=== PATIENT | female | born 1940 | race Two or more races ===

== ENCOUNTER 2024-03-03 20:35 | Inpatient (IN) | payer MEDICAID, OTHER ==
[~2024-03-03] VITALS: Ht 152.4 cm; Wt 48.7 kg
--- NOTE | 2024-03-03 21:11 | ED.PDOC ---
HPI Comments HPI: Poor Historian. 83-year-old female presents to emergency department for evaluation of high blood pressure. Patient was checked by her physical therapy home health nurse today and they found her blood pressure to be elevated greater than 200. Patient was sent here for evaluation. Patient has associated headache and some palpitation but denies any chest pain or shortness of breath. Past Medcial History: Arthritis, thyroid disease, hypertension Past Surgical History: Leg-hip surgery REVIEW OF SYSTEMS: CONSTITUTIONAL: Denies acute: fever, diaphoresis, chills, generalized weakness. HEAD: Denies acute: photophobia Eyes: Denies acute: Double vision, vision loss, eye pain, eye discharge. EARS: Denies acute: tinnitus, hearing loss, ear discharge, ear pain, THROAT: Denies acute: sore throat, swelling, difficulty swallowing , pain with swallowing, change in voice. NECK: Denies acute: neck pain, neck swelling, stiff neck. HEART: Denies acute : chest pain, palpitations, LUNGS: Denies acute: SOB, wheezing, cough, hemoptysis ABDOMEN: Denies acute: abdominal pain, Nausea, Vomiting, diarrhea, melena , hematemesis, hematochezia SKIN: Denies acute: rash, redness, lesions, itchiness. EXTREMITIES: Denies acute: calf pain, numbness, tingling, weakness, denies pain in extremity. Denies acute: Low back pain. Neuro: Denies acute: focal neurological deficit, motor or sensory focal neurological deficit, tremors, seizure like activity, confusion, dizziness, change in mental status, loss of bowel or bladder function, cauda equina like symptoms. : Denies acute: dysuria, hematuria, flank pain, increase in urinary frequency. PSYCH: Denies acute: hallucination, suicidal ideation, homicidal ideation. FEMALE: Denies acute: abnormal vaginal bleeding, foul odor, unusual discharge. PHYSICAL EXAM: General: no acute distress, awake and alert. Head: normocephalic, atraumatic. Neck: supple, trachea is midline, no swelling. Throat: Normal phonation. Eyes:, no erythema, no purulent discharge, no proptosis, no icterus. Heart: regular rate, regular rhythm, no significant murmur appreciated. Lungs: no apparent respiratory distress, Able to speak in full sentences. No wheezing, no rhonchi, no crackles. No stridors Clear to auscultation bilaterally. Abdomen: non tender to palpation, non distended, soft, no guarding, no rebound, + bowel sounds. Neuro: Awake, Alert, oriented to name, self, situation, follows commands GCS=15. Speech is normal. Skin: no petechia, no purpura, no cyanosis, non-pale, not jaundice. Lower extremities: --no - Pitting edema no deformity, no focal swelling, no calf TTP. Makes eye contact. moves all four extremities. Face: no apparent facial droop. Time Seen by MD: 20:39 Reviewed Notes: Nurses Notes, Allergies Allergies: Coded Allergies: Penicillins (Verified Allergy, Unknown, 03/03/24) Home Meds Reported Medications Propranolol Hcl (Inderal La) 60 Mg Cap, 10 MG PO, CAP 03/04/24 Levothyroxine Sodium (Levothyroxine Sodium) 25 Mcg Tab, 1 TAB PO DAILY, #90 TAB 1 Refill 03/04/24 Methimazole (Methimazole) 10 Mg Tab, 10 MG PO, TAB 03/04/24 Information Source: Patient Was a procedure done? Was a procedure done?: No CP Differential Dx Differential Diagnosis: N/A Differential Diagnosis: Other (DDX include renal disease, thyroid disease, electrolyte abnormality, increased salt intake, medications non-compliance, undiagnosed HTN, Hypertensive crisis, hypertensive urgency., drug toxicity.) X-Ray, Labs, Meds, VS Vital Signs Date Time Temp Pulse Resp B/P (MAP) Pulse Ox O2 Delivery O2 Flow Rate FiO2 03/04/24 02:30 88 14 136/107 (117) 95 03/04/24 02:00 66 16 133/67 (89) 93 03/04/24 01:53 146/67 03/04/24 01:30 63 15 145/68 (93) 95 03/04/24 01:00 65 17 159/69 (99) 94 03/04/24 00:42 69 204/87 03/04/24 00:30 70 15 204/87 (126) 94 03/04/24 00:16 75 03/04/24 00:00 69 03/03/24 23:45 67 22 174/76 (108) 95 03/03/24 23:26 69 161/75 03/03/24 23:15 67 17 161/75 (103) 95 03/03/24 23:00 73 15 229/205 (213) 98 03/03/24 22:21 77 208/116 03/03/24 22:20 97.9 72 18 218/106 (143) 95 97.9 03/03/24 22:13 75 03/03/24 21:45 77 16 97 Room Air* 0 21 03/03/24 21:45 77 16 208/116 (146) 97 03/03/24 21:19 253/118 03/03/24 21:13 75 03/03/24 21:10 97.5 81 18 253/118 (163) 96 Lab Test 03/04/24 00:25 03/03/24 22:45 03/03/24 21:12 Range/Units Magnesium Level 2.5 1.6-2.6 mg/dL Troponin I High Sensitivity 28 27 25 </=34 ng/L White Blood Count 10.0 4.4-10.8 10^3/uL Red Blood Count 4.35 4.0-5.20 10^6/uL Hemoglobin 13.9 12.2-16.2 g/dL Hematocrit 41.6 36.0-46.0 % Mean Corpuscular Volume 95.6 80.0-100.0 fL Mean Corpuscular Hemoglobin 31.9 28.0-32.0 pg Mean Corpuscular Hemoglobin Concent 33.4 32.0-36.0 g/dL Red Cell Distribution Width 14.7 H 11.8-14.3 % Platelet Count 201 140-450 10^3/uL Mean Platelet Volume 11.4 H 6.9-10.8 fL Neutrophils (%) (Auto) 73.4 37.0-80.0 % Lymphocytes (%) (Auto) 17.5 10.0-50.0 % Monocytes (%) (Auto) 7.2 0.0-12.0 % Eosinophils (%) (Auto) 1.5 0.0-7.0 % Basophils (%) (Auto) 0.4 0.0-2.0 % Neutrophils # (Auto) 7.4 1.6-8.6 10 ^3/uL Lymphocytes # (Auto) 1.8 0.4-5.4 10 ^3/uL Monocytes # (Auto) 0.7 0-1.3 10 ^3/uL Eosinophils # (Auto) 0.1 0-0.8 10 ^3/uL Basophils # (Auto) 0 0-0.2 10 ^3/uL Nucleated Red Blood Cells 0.0 % Sodium Level 136 136-145 mmol/L Potassium Level 4.7 3.5-5.1 mmol/L Chloride Level 105 98-107 mmol/L Carbon Dioxide Level 24 20-31 mmol/L Anion Gap 7 5-15 Blood Urea Nitrogen 20 9-23 mg/dL Creatinine 0.73 0.550-1.02 mg/dL Glomerular Filtration Rate Calc 81 >90 mL/min BUN/Creatinine Ratio 27.4 H 10.0-20.0 Serum Glucose 115 H 74-106 mg/dL Calcium Level 10.0 8.7-10.4 mg/dL Total Bilirubin 0.5 0.2-1.0 mg/dL Aspartate Amino Transferase (AST) 9 L 13-40 U/L Alanine Aminotransferase (ALT) < 9 7-40 U/L Alkaline Phosphatase 99 46-116 U/L B-Type Natriuretic Peptide 203.03 0-100 pg/mL Total Protein 7.6 5.7-8.2 g/dL Albumin 4.7 3.2-4.8 g/dL [place] [id number] Ph: [phone] DIAGNOSTIC IMAGING Diagnostic Imaging Report : [id number] Signed PATIENT: LETICIA KINGSLEY ACCT: [id number] UNIT: [id number] : 1940 LOC: ER ROOM / BED: / AGE / SEX: 83 / F ADM STATUS: REG ER SERVICE 03 ORDERING PHYSICIAN: DIANA ARREOLA DO PROCEDURE(s): CXRP - CHEST PORTABLE REASON: HTN ORDER NUMBER(s): [id number], ACCESSION NUMBER(s): [id number] CHEST RADIOGRAPH Indication:HTN Technique: Single frontal view of the chest was obtained Comparison: None FINDINGS: Lines and Tubes: None Lungs: No focal consolidation. Pleura: No effusion. No pneumothorax. Cardiomediastinal contours: Unremarkable Bones: No acute osseous abnormality. IMPRESSION: No acute cardiopulmonary disease. ATED BY: IRVING KAM DO DICTATED DATE/TIME: 03/03/242142 SIGNED BY: IRVING KAM DO SIGNED DATE/TIME: 03/03/242142 CC: [place] [id number] Ph: [phone] DIAGNOSTIC IMAGING Diagnostic Imaging Report : [id number] Signed PATIENT: LETICIA KINGSLEY ACCT: [id number] UNIT: [id number] : 1940 LOC: ER ROOM / BED: / AGE / SEX: 83 / F ADM STATUS: REG ER SERVICE 03 ORDERING PHYSICIAN: DIANA ARREOLA DO PROCEDURE(s): HWOCT - HEAD WITHOUT CONTRAST REASON: HTN ORDER NUMBER(s): [id number], ACCESSION NUMBER(s): [id number] EXAM: CT HEAD WITHOUT CONTRAST INDICATION: HTN TECHNIQUE: CT of the head without intravenous contrast. Radiation Dose Information: CT Dose: CTDI volume is 48.66 mGy. Dose-length product is 682.94 mGy*cm The dose indicators for CT are the volume Computed Tomography (CT) Dose Index (CTDIvol) and the Dose Length Product (DLP), and are measured in units of mGy and mGy-cm, respectively. These indicators are not patient dose, but values generated from the CT scanner acquisition factors. The report includes radiation exposure data for exposures received during this examination. COMPARISON: None FINDINGS: There is no evidence of acute intracranial hemorrhage, extra-axial collection, mass effect, midline shift, herniation or hydrocephalus. The ventricles, sulci and cisterns are age appropriate. The gasca-white differentiation is intact. Patchy periventricular and subcortical white matter hypoattenuation is nonspecific but may be related to small vessel ischemic disease. The visualized paranasal sinuses and mastoid air cells are clear. The surrounding soft tissues and osseous structures are unremarkable. IMPRESSION: 1. No acute intracranial hemorrhage. 2. No CT findings territorial ischemia. ATED BY: VISH SAM Jr., DO DICTATED DATE/TIME: 03/03/242146 SIGNED BY: VISH SAM Jr., SIGNED DATE/TIME: 03/03/242146 CC: Time of 1ST Reevaluation: 00:30 Reevaluation 1ST: Improved Patient Education/Counseling: Diagnosis, Treatment Family Education/Counseling: No Family Present Comments Patient presented with the above HPI.---hypertension---workup was initiated. patient was found with the above mentioned diagnosis. Patient was given: Nitroglycerin, labetalol twice, Tylenol, Patient ED course and VS have been stabilized. Patient has been reassessed in the ED and remained in a stable condition. Pertinent incidental findings were discussed with the patient and/or family. Patient/family voices understanding and is agreeable with plan. Patient has been observed in the ED adequate length of time to insure improvement/stability. patient was admitted to the medicine team for further evaluation and treatment of their presentation. All the reports of any imaging studies that were ordered by myself were reviewed by myself. Departure 1 Departure Time of Disposition: 00:32 Impression: Primary Impression: Hypertensive crisis Disposition: 09 ADMITTED INPATIENT Admit to: [facility] Condition: Guarded Discharged With: Self Critical Care Note Critical Care Time?: Yes (35 min-critical care time only) Heart Score Heart Score: Heart Score Response (Comments) Value History N/A 0 EKG N/A 0 Age N/A 0 Risk Factors N/A 0 Troponin N/A 0 Total 0 DIANA ARREOLA DO Mar 03, 2024 21:11
[2024-03-03] MEDS: NITROGLYCERIN 0.4 MG SL TAB SL ONE (21:19)
[2024-03-03 21:32] LABS: Basophils # (auto) 0 10 ^3/uL (0-0.2); Basophils % (auto) 0.4 % (0.0-2.0); Eosinophils # (auto) 0.1 10 ^3/uL (0-0.8); Eosinophils % (auto) 1.5 % (0.0-7.0); Hematocrit 41.6 % (36.0-46.0); Hemoglobin 13.9 g/dL (12.2-16.2); Lymphocytes # (auto) 1.8 10 ^3/uL (0.4-5.4); Lymphocytes % (auto) 17.5 % (10.0-50.0); Mean Corpuscular Hemoglobin 31.9 pg (28.0-32.0); Mean Corpuscular Hgb Conc. 33.4 g/dL (32.0-36.0); Mean Corpuscular Volume 95.6 fL (80.0-100.0); Monocytes # (auto) 0.7 10 ^3/uL (0-1.3); Monocytes % (auto) 7.2 % (0.0-12.0); Neutrophils # (auto) 7.4 10 ^3/uL (1.6-8.6); Neutrophils % (auto) 73.4 % (37.0-80.0); Platelet Count (auto) 201 10^3/uL (140-450); Red Blood Cells 4.35 10^6/uL (4.0-5.20); Red Cell Distribution Width 14.7 % (11.8-14.3)
[2024-03-03 21:45] VITALS: PULSE 77; RESP 16; O2SAT 97
--- NOTE | 2024-03-03 21:46 | DVH ---
CHEST RADIOGRAPH Indication:HTN Technique: Single frontal view of the chest was obtained Comparison: None FINDINGS: Lines and Tubes: None Lungs: No focal consolidation. Pleura: No effusion. No pneumothorax. Cardiomediastinal contours: Unremarkable Bones: No acute osseous abnormality. IMPRESSION: No acute cardiopulmonary disease.
--- NOTE | 2024-03-03 21:49 | DVH ---
EXAM: CT HEAD WITHOUT CONTRAST INDICATION: HTN TECHNIQUE: CT of the head without intravenous contrast. Radiation Dose Information: CT Dose: CTDI volume is 48.66 mGy. Dose-length product is 682.94 mGy*cm The dose indicators for CT are the volume Computed Tomography (CT) Dose Index (CTDIvol) and the Dose Length Product (DLP), and are measured in units of mGy and mGy-cm, respectively. These indicators are not patient dose, but values generated from the CT scanner acquisition factors. The report includes radiation exposure data for exposures received during this examination. COMPARISON: None FINDINGS: There is no evidence of acute intracranial hemorrhage, extra-axial collection, mass effect, midline s hift, herniation or hydrocephalus. The ventricles, sulci and cisterns are age appropriate. The gasca-white differentiation is intact. Patchy periventricular and subcortical white matter hypoattenuation is nonspecific but may be related to small vessel ischemic disease. The visualized paranasal sinuses and mastoid air cells are clear. The surrounding soft tissues and osseous structures are unremarkable. IMPRESSION: 1. No acute intracranial hemorrhage. 2. No CT findings territorial ischemia.
[2024-03-03 21:50] LABS: Alkaline Phosphatase 99 U/L (46-116); Anion Gap 7 (5-15); Aspartate Aminotransferase 9 U/L (13-40); BUN/Creatinine Ratio 27.4 (10.0-20.0); Blood Urea Nitrogen 20 mg/dL (9-23); Carbon Dioxide 24 mmol/L (20-31); Chloride 105 mmol/L (98-107); Glucose 115 mg/dL (74-106); Potassium 4.7 mmol/L (3.5-5.1); Sodium 136 mmol/L (136-145)
[2024-03-03 21:51] LABS: Albumin 4.7 g/dL (3.2-4.8); Bilirubin, Total 0.5 mg/dL (0.2-1.0); Total Protein 7.6 g/dL (5.7-8.2)
[2024-03-03 21:56] LABS: Alanine Aminotransferase < 9 U/L (7-40)
[2024-03-03] MEDS: LABETALOL HCL 20 MG/4 ML VL IV ONE ×2 (22:21→23:25)
[2024-03-04] VITALS (7 sets, daily range): BP systolic 110–135; BP diastolic 53–65; PULSE 69–95; RESP 18–21; TEMP 97.4–98.5; O2SAT 93–98
[2024-03-04] MEDS: ACETAMINOPHEN 325 MG TAB PO ONE (00:42)
[2024-03-04] MEDS ORDERED: ACETAMINOPHEN 325 MG TAB PO PRN (02:45)
[2024-03-04] MEDS ORDERED: HYDROcodone-ACET 5/325MG TAB PO PRN (02:45)
[2024-03-04] MEDS ORDERED: NITROGLYCERIN 0.4 MG SL TAB SL PRN (02:45)
[2024-03-04] MEDS ORDERED: MORPHINE SULFATE INJ 2 MG/ml SYRG IV PRN (02:45)
[2024-03-04] MEDS ORDERED: ONDANSETRON HCL 4 MG/2 ML VIAL IV PRN (02:45)
--- NOTE | 2024-03-04 03:54 | DVHHPRES ---
History of Present Illness Resident Creating Document: LILLY SIDDIQUI RESIDENT History of Present Illness This is a 83 years old female with past medical history of hypertension, rheumatoid arthritis, hyperthyroidism presented to the ED with a chief complaint of elevated blood pressure. According to the daughter the patient was checked by her home health nurse today and and she found her blood pressure was more than 200 that prompted this visit. The patient was complaining of neck pain and headache but denies any chest pain, shortness of breath, dizziness, diaphoresis, abdominal pain, nausea, vomiting or any change in bowel and bladder habit. On admission blood pressure was 253/118 and was given 2 dose of IV labetalol 10 mg followed by 5 mg and subsequently drops the blood pressure to 161/75 . Cardiovascular: HTN Rheumatologic: Rheumatoid arthritis Endocrine: Hyperthyroidism Past Surgical History Right hip replacement 2 months ago Family History No significant family history Smoke: No ALCOHOL: none Drugs: None Lives: with Family Review of Systems Constitutional: No: Fever, Chills, Sweats, Weakness, Malaise, Other Eyes: No: Pain, Vision change, Conjunctivae inflammation, Eyelid inflammation, Other, Redness ENT: No: Ear pain, Ear discharge, Nose pain, Nose discharge, Nose congestion, Mouth pain, Mouth swelling, Throat pain, Throat swelling, Other Respiratory: No: Cough, Dry, Shortness of breath, SOB with excertion, Wheezing, Hemoptysis, Pleuritic Pain, Sputum, Wheezing, Other Cardiovascular: No: Chest Pain, Palpitations, Orthopnea, Paroxysmal Noc. Dyspnea, Edema, Lt Headedness, Other Gastrointestinal: No: Nausea, Vomiting, Abdominal Pain, Diarrhea, Constipation, Melena, Hematochezia, Other Genitourinary: No Dysuria, No Frequency, No Incontinence, No Hematuria, No Retention, No Other Musculoskeletal: neck pain; No: other, shoulder pain, arm pain, back pain, hand pain, leg pain, foot pain Skin: No: Rash, Lesions, Jaundice, Bruising, Other Neurological: No: Weakness, Numbness, Incoordination, Change in speech, Confusion, Seizures, Other Allergies: Coded Allergies: Penicillins (Verified Allergy, Unknown, 03/03/24) Medications Current Medications Medications Dose Ordered Sig/Vinicio Route Start Time Stop Time Status Last Admin Dose Admin Sodium Chloride 10 ml Q8HR IV 03/04/24 06:00 Acetaminophen 325 mg Q4HP PRN PO 03/04/24 02:45 Acetaminophen/ Hydrocodone Bitart 1 tab Q4HP PRN PO 03/04/24 02:45 Ondansetron HCl 4 mg Q4HP PRN IV 03/04/24 02:45 Enoxaparin Sodium 40 mg DAILY SC 03/04/24 10:00 Nitroglycerin 0.4 mg Q5MINP PRN SL 03/04/24 02:45 Morphine Sulfate 2 mg Q30M PRN IV 03/04/24 02:45 Hydralazine HCl 10 mg Q6HPRN IV 03/04/24 06:00 UNV Exam Vital Signs Vital Signs Date Time Temp Pulse Resp B/P (MAP) Pulse Ox O2 Delivery O2 Flow Rate FiO2 03/04/24 01:53 146/67 03/04/24 00:42 69 03/03/24 23:45 22 95 03/03/24 22:20 97.9 97.9 03/03/24 21:45 Room Air* 0 21 General Appearance: Alert, Oriented X3, Cooperative, mild distress HEENT: Atraumatic, PERRLA, EOMI, Mucous membr. moist/pink Respiratory: Clear to auscultation, Normal air movement Cardiovascular: Regular rate, Normal S1, Normal S2, No murmurs Abdominal: Normal bowel sounds, Soft, No tenderness, No hepatospenomegaly, No masses Extremities: No clubbing, No cyanosis, No edema, Normal pulses, No tenderness/swelling Skin: No rashes, No breakdown, No significant lesion Neuro: Normal gait, Normal speech, Strength at 5/5 X4 ext, Normal tone, Sensation intact Psych/Mental Status: Mental status NL, Mood NL Labs/Xrays Labs Test 03/04/24 00:25 03/03/24 21:12 Range/Units Troponin I High Sensitivity 28 </=34 ng/L White Blood Count 10.0 4.4-10.8 10^3/uL Red Blood Count 4.35 4.0-5.20 10^6/uL Hemoglobin 13.9 12.2-16.2 g/dL Hematocrit 41.6 36.0-46.0 % Mean Corpuscular Volume 95.6 80.0-100.0 fL Mean Corpuscular Hemoglobin 31.9 28.0-32.0 pg Mean Corpuscular Hemoglobin Concent 33.4 32.0-36.0 g/dL Red Cell Distribution Width 14.7 H 11.8-14.3 % Platelet Count 201 140-450 10^3/uL Mean Platelet Volume 11.4 H 6.9-10.8 fL Neutrophils (%) (Auto) 73.4 37.0-80.0 % Lymphocytes (%) (Auto) 17.5 10.0-50.0 % Monocytes (%) (Auto) 7.2 0.0-12.0 % Eosinophils (%) (Auto) 1.5 0.0-7.0 % Basophils (%) (Auto) 0.4 0.0-2.0 % Neutrophils # (Auto) 7.4 1.6-8.6 10 ^3/uL Lymphocytes # (Auto) 1.8 0.4-5.4 10 ^3/uL Monocytes # (Auto) 0.7 0-1.3 10 ^3/uL Eosinophils # (Auto) 0.1 0-0.8 10 ^3/uL Basophils # (Auto) 0 0-0.2 10 ^3/uL Nucleated Red Blood Cells 0.0 % Sodium Level 136 136-145 mmol/L Potassium Level 4.7 3.5-5.1 mmol/L Chloride Level 105 98-107 mmol/L Carbon Dioxide Level 24 20-31 mmol/L Anion Gap 7 5-15 Blood Urea Nitrogen 20 9-23 mg/dL Creatinine 0.73 0.550-1.02 mg/dL Glomerular Filtration Rate Calc 81 >90 mL/min BUN/Creatinine Ratio 27.4 H 10.0-20.0 Serum Glucose 115 H 74-106 mg/dL Calcium Level 10.0 8.7-10.4 mg/dL Total Bilirubin 0.5 0.2-1.0 mg/dL Aspartate Amino Transferase (AST) 9 L 13-40 U/L Alanine Aminotransferase (ALT) < 9 7-40 U/L Alkaline Phosphatase 99 46-116 U/L B-Type Natriuretic Peptide 203.03 0-100 pg/mL Total Protein 7.6 5.7-8.2 g/dL Albumin 4.7 3.2-4.8 g/dL Assessment/Plan Assessment/Plan Assessment and plan: # Hypertensive urgency - On admission blood pressure was 253/118 - Patient is admitted in telemetry and monitor blood pressure q.2h - Patient was given 2 dose of IV labetalol 10 mg followed by 5 mg - IV hydralazine 10 mg q.6 p.r.n. - Head CT revealed no acute intracranial hemorrhage - Chest x-ray demonstrated no acute cardiopulmonary disease - EKG revealed sinus rhythm with LVH findings and troponins are unremarkable - Ordered Echo. # History of rheumatoid arthritis - Continue home meds # History of hyperthyroidism -Continue home meds methimazole Goal of care discussed with the patient for more than 20 minutes full code Plan of treatment discussed with Dr. Cooley Plan discussed with: Patient, Other My Orders Orders - LILLY SIDDIQUI RESIDENT Procedure Category Date Status Time Admit ADMIT 03/04/24 Transmitted 02:41 Allergies NAHOMI 03/04/24 In Process 02:41 Code Status CODE 03/04/24 Transmitted 02:41 2 Gm Sodium Diet DIET 03/04/24 Transmitted Breakfast Sodium Chloride Lock PHA 03/04/24 In Process (Saline Lock Ns) 06:00 Oxygen Per Hour RT 03/04/24 Transmitted 02:41 Acetaminophen Tablet PHA 03/04/24 In Process (Tylenol Tablet) 02:45 Hydrocodone-Acet PHA 03/04/24 In Process 5/325mg Tab ([place] 02:45 Ondansetron Hcl PHA 03/04/24 In Process (Zofran) 02:45 Enoxaparin Sodium PHA 03/04/24 In Process (Lovenox) 10:00 Fall Risk Precautions NAHOMI 03/04/[address] 02:41 Complete Blood Count LAB 03/05/24 Verified 04:00 Comprehensive LAB 03/05/24 Verified Metabolic Panel 04:00 Pt Request For Service PT 03/04/24 Logged 02:41 Nitroglycerin PHA 03/04/24 In Process Sublingual (Ntrostat 02:45 Morphine Sulfate PHA 03/04/24 In Process Injection 02:45 Oxygen By Nasal RT 03/04/24 Transmitted Cannula 02:41 Stat Ekg For Chest NAHOMI 03/04/24 In Process Pain 02:41 Notify Of Changes NAHOMI 03/04/24 In Process From Base 02:41 Multiple Drum Sander Helper For NAHOMI 03/04/24 In Process 24 Hours 02:41 Emergency Dysrhythmia NAHOMI 03/04/24 In Process Protocol 02:41 Rhythm Strips Once NAHOMI 03/04/24 In Process Every Shift 02:41 Echo 2d Mode Cardiac US 03/04/24 Logged DOP 02:49 Thyroid Stimulating LAB 03/04/24 Logged Hormone 02:49 Hemoglobin A1c LAB 03/04/24 Logged 02:49 Bilat Lower Dvt US 03/04/24 Logged 02:49 Vitamin B12 LAB 03/04/24 Logged 02:49 Vitamin D, 25-Hydroxy LAB 03/04/24 Logged 02:49 Urinalysis LAB 03/04/24 Uncollected 02:49 Hydralazine Injection PHA 03/04/24 Pending (Apresoline Inject 06:00 Transfer Orders XFER 03/04/24 Transmitted 03:53 Date of Service: Mar 04, 2024 Billing Provider: KIMBERLI COOLEY MD Common Visit Codes: 39864-DUINRUU INP/OBS CARE (HIGH) Secondary Visit Codes: 56501-EMOVMQTT CARE PLAN 30 MINUTES LILLY SIDDIQUI RESIDENT Mar 04, 2024 03:54 KIMBERLI COOLEY MD Mar 04, 2024 09:01
--- NOTE | 2024-03-04 05:53 | ECG ---
[facility] Test Date: 2024-03-03 Test Time: 22:13:12 Pat Name: LETICIA CANCHOLA Department: ED Room: 0290 Gender: F Chargemaster Specialist: GADIEL : 1940 Requested By: DIANA ARREOLA Order Number: [id number] Reading MD: Trace Rayo Measurements Intervals [place] Rate: 75 P: 29 [place]: 177 QRS: 55 QRSD: 75 T: 60 QT: 411 QTc: 460 Interpretive Statements Sinus rhythm Consider left ventricular hypertrophy Electronically Signed On 03-05-2024 14:56:18 PDT by Trace Rayo Please click the below link to view image of tracing.
--- NOTE | 2024-03-04 05:54 | ECG ---
[facility] Test Date: 2024-03-04 Test Time: 00:16:39 Pat Name: LETICIA CANCHOLA Department: ED Room: 0290 Gender: F Wellness Nurse Rn: GADIEL : 1940 Requested By: DIANA ARREOLA Order Number: [id number] Reading MD: Trace Rayo Measurements Intervals [place] Rate: 75 P: 16 [place]: 186 QRS: 71 QRSD: 91 T: 75 QT: 443 QTc: 495 Interpretive Statements Sinus rhythm Borderline prolonged QT interval Electronically Signed On 03-05-2024 14:56:30 PDT by Trace Rayo Please click the below link to view image of tracing.
[2024-03-04] MEDS: SODIUM CHLOR 0.9% PF (SALINE LOCK) 10ML VIAL/SYR IV SCH (06:10)
[2024-03-04] MEDS: hydrALAZINE HCL 20 MG/ML VL IV PRN (08:41)
--- NOTE | 2024-03-04 08:48 | DVH ---
BILATERAL LOWER EXTREMITY VENOUS DOPPLER CLINICAL HISTORY: To rule out DVT Technique: Duplex Doppler evaluation of the deep venous systems of both lower extremities from the co mmon femoral veins to the popliteal veins including color Doppler and spectral/pulsed waveform analys is was performed. COMPARISON: None FINDINGS: The right and left common femoral, superficial femoral, popliteal, posterior tibial and peroneal vein s appear patent with normal augmentation, phasicity, compressibility and color-flow. IMPRESSION: 1. There is no sonographic evidence for DVT in the lower extremities. HS:Y
--- NOTE | 2024-03-04 09:23 | ECG ---
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
[2024-03-04] MEDS: methIMAzole 5 MG TAB PO SCH (10:27)
[2024-03-04] MEDS: ENOXAPARIN SOD 40 MG/0.4 ML SYRINGE SC SCH (10:28)
--- NOTE | 2024-03-04 10:42 | DVHPNRES ---
Progress Note Date Seen: Mar 04, 2024 Resident Creating Document: KHALIF CHINO RESIDENT Medical Necessity Reason Pt with a Central, PICC or Fol: No Subjective Review of Systems Patient is a 83-year-old female with past medical history of hypothyroidism, rheumatoid arthritis, hypertension, intertrochanteric femoral fracture, who came in due to hypertensive urgency along with an occipital headache. According to the patient, yesterday on 03/03/2024 her home health nurse checked her blood pressure and systolic blood pressure was in the 200s. Home health nurse subsequently instructed the patient to go to the ER. Patient notes having similar episodes of hypertension in the past, however is unable to remember when she experiences the last time. Blood pressure in the ER was noted to be 253/118, patient was given IV labetalol and admitted. Past surgical history: Right hip replacement 6 weeks ago Home medications: Amlodipine 10 mg, aspirin 81 mg Past Hospitalization: In December 2023 for right hip replacement after a mechanical fall Social & Personal history: Patient lives with her family. Denies using tobacco, alcohol, drugs. Allergies: Penicillin Patient seen and examined at bedside. Patient is alert and oriented to time, place person and responding to all questions. General: Reports fatigue Eyes: No Pain, No Vision change, No Conjunctivae inflammation, No Eyelid inflammation, No Other, No Redness ENT: No Ear pain, No Ear discharge, No Nose pain, No Nose discharge, No Nose congestion, No Mouth pain, No Mouth swelling, No Throat pain, No Throat swelling, No Other Cardiovascular: No Chest Pain, Palpitations, No Orthopnea, No Paroxysmal No Dyspnea, No Edema, No Lt Headedness, No Other Respiratory: No Cough, No Dry, No Shortness of breath, No SOB with exertion, No Wheezing, No Hemoptysis, No Pleuritic Pain, No Sputum, No Other Gastrointestinal: No Nausea, No Vomiting, No Abdominal Pain, No Diarrhea, No Constipation, No Melena, No Hematochezia, No Other Genitourinary: No Dysuria, No Frequency, No Incontinence, No Hematuria, No Retention, No Other Musculoskeletal: No other, No neck pain, No shoulder pain, No arm pain, No back pain, No hand pain, No leg pain, No foot pain Skin: No Rash, No Lesions, No Jaundice, No Bruising, No Other Objective vital signs Vital Sign Date Time Temp Pulse Resp B/P (MAP) Pulse Ox O2 Delivery O2 Flow Rate FiO2 03/04/24 09:35 98.0 89 18 127/53 (77) 98 98.0 03/04/24 07:20 Room Air* 0 21 medications Current Medications Medications Dose Ordered Sig/Vinicio Route Start Time Stop Time Status Last Admin Dose Admin Sodium Chloride 10 ml Q8HR IV 03/04/24 06:00 03/04/24 06:10 10 ML Acetaminophen 325 mg Q4HP PRN PO 03/04/24 02:45 Acetaminophen/ Hydrocodone Bitart 1 tab Q4HP PRN PO 03/04/24 02:45 Ondansetron HCl 4 mg Q4HP PRN IV 03/04/24 02:45 Enoxaparin Sodium 40 mg DAILY SC 03/04/24 10:00 03/04/24 10:28 40 MG Nitroglycerin 0.4 mg Q5MINP PRN SL 03/04/24 02:45 Morphine Sulfate 2 mg Q30M PRN IV 03/04/24 02:45 Hydralazine HCl 10 mg Q6HPRN PRN IV 03/04/24 06:00 03/04/24 08:41 10 MG Methimazole 5 mg DAILY PO 03/04/24 10:00 03/04/24 10:27 5 MG Examination General Appearance: Cooperative. Well developed. Well nourished. NAD Head Exam: Normal inspection Neck Exam: Normal inspection. Non-tender. Normal alignment Pulmonary/Respiratory: Chest non-tender. Clear bilateral breath sounds, no crackles, no wheezing. Cardiovascular/Chest: Regular rate and rhythm. No murmurs. No JVD. Peripheral Pulses: 2+ Radial (R). 2+ Radial (L). 2+ Pedal (R). 2+ Pedal (L) Abdominal Exam: Normal bowel sounds. Soft. normal abdomen, no visible veins, Nontender. No hepatospenomegaly. No masses Ankle Exam: Negative ankle edema Lower extremities: Negative lower extremity edema Neuro/Mental Status: A&O x4. Coherent. Thoughts/Psych: Normal thought pattern. Appropriate mood and affect. Good judgement and insight Skin Exam: Normal inspection. Normal color. Warm. Dry laboratory and microbiology Laboratory Tests 03/03/24 21:12 Test 03/03/24 21:12 Range/Units Serum Glucose 115 H 74-106 mg/dL Labs and/or images reviewed: Labs reviewed by me, Image(s) reviewed by me Problem List/Assessment/Plan Problem List/Assessment/Plan Hypertensive urgency versus emergency - CXR: No acute cardiopulmonary disease - head CT: No acute intracranial hemorrhage. No CT findings of territorial ischemia. - extremity venous Doppler: There is no sonographic evidence for DVT in the lower extremities. - IV labetalol 5 mg once, IV labetalol 10 mg once - hydralazine 10 mg q.6 as needed for systolic blood pressure greater than 150 - PT evaluation requested Hyperthyroidism - TSH 0.13 - methimazole 5 mg p.o. daily History of rheumatoid arthritis - acetaminophen 325 mg for mild pain, [place] q.4 hours as needed for moderate pain Vitamin B12 deficiency - repleted DVT prophylaxis: Levonox 40mg Goals of care: Full code, discussed for >16 minutes on 03/04/24 Plan discussed with patient Plan discussed with Dr. Cooley Plan discussed with: Patient, Other (Elton, RN) My Orders My Orders Orders - KHALIF CHINO RESIDENT Procedure Category Date Status Time Urinalysis LAB 03/04/24 Logged 07:46 Drug Screen LAB 03/04/24 Logged 07:46 Date of Service: Mar 04, 2024 Billing Provider: KIMBERLI COOLEY MD Common Visit Codes: [id number] INP/OBS CARE(HIGH) KHALIF CHINO Mar 04, 2024 10:42 KIMBERLI COOLEY MD Mar 04, 2024 17:44
[2024-03-04] MEDS ORDERED: METH-552 PO (11:37)
[2024-03-04] MEDS ORDERED: PROP60CA34 PO (11:43)
[2024-03-04] MEDS ORDERED: LEVO25TA6 PO (11:43)
[2024-03-04 15:35] LABS: Urine Bacteria None Seen /hpf (None Seen)
[2024-03-04 15:45] LABS: Free T3 2.95 pg/mL (2.3-4.2); Free T4 (Free Thyroxine) 1.36 ng/dL (0.89-1.76)
[2024-03-04 16:00] LABS: Amphetamine Screen, Urine Neg (NEGATIVE); Barbiturate Scree,Urine Neg (NEGATIVE); Benzodiazephine Screen, Urine Neg (NEGATIVE); Cannabinoid Screen, Urine Neg (NEGATIVE); Cocaine Screen, Urine Neg (NEGATIVE); Opiate Scree,Urine Neg (NEGATIVE); Phencyclidine Screen, Urine Neg (NEGATIVE)
[2024-03-04 16:31] LABS: Urine Amorphous Crystal FEW /hpf (None Seen); Urine Blood Negative /uL (Negative); Urine Clarity Clear (Clear); Urine Color Yellow (Yellow); Urine Mucus FEW (None Seen); Urine Protein, UAD 1+ (Negative); Urine Specific Gravity 1.024 (1.001-1.035); Urine Urobilinogen 3 mg/dL (Negative); Urine WBC 5 /hpf (0 - 5); Urine pH 6.5 (5.0-9.0)
[2024-03-04] MEDS: CYANOCOBALAMIN (B-12) 1000 MCG/1 ML VIAL IM ONE (17:30)
[2024-03-04] MEDS: amLODIPine BESYLATE 5 MG TAB PO ONE (20:08)
[2024-03-05] VITALS (8 sets, daily range): BP systolic 125–146; BP diastolic 61–89; PULSE 71–103; RESP 18–22; TEMP 97.9–98.4; O2SAT 96–99
[2024-03-05 07:36] LABS: Basophils # (auto) 0 10 ^3/uL (0-0.2); Basophils % (auto) 0.6 % (0.0-2.0); Eosinophils # (auto) 0.1 10 ^3/uL (0-0.8); Eosinophils % (auto) 2.4 % (0.0-7.0); Hematocrit 37.9 % (36.0-46.0); Hemoglobin 12.5 g/dL (12.2-16.2); Lymphocytes # (auto) 1.3 10 ^3/uL (0.4-5.4); Lymphocytes % (auto) 22.3 % (10.0-50.0); Mean Corpuscular Hemoglobin 31.7 pg (28.0-32.0); Mean Corpuscular Hgb Conc. 32.9 g/dL (32.0-36.0); Mean Corpuscular Volume 96.3 fL (80.0-100.0); Monocytes # (auto) 0.5 10 ^3/uL (0-1.3); Monocytes % (auto) 9.4 % (0.0-12.0); Neutrophils # (auto) 3.7 10 ^3/uL (1.6-8.6); Neutrophils % (auto) 65.3 % (37.0-80.0); Nucleated Red Blood Cells % 0.1 %; Platelet Count (auto) 153 10^3/uL (140-450); Red Blood Cells 3.93 10^6/uL (4.0-5.20); Red Cell Distribution Width 14.9 % (11.8-14.3); White Blood Cell 5.6 10^3/uL (4.4-10.8)
[2024-03-05 07:44] LABS: Albumin 3.8 g/dL (3.2-4.8); Alkaline Phosphatase 80 U/L (46-116); Anion Gap 6 (5-15); Aspartate Aminotransferase < 8 U/L (13-40); BUN/Creatinine Ratio 25.8 (10.0-20.0); Blood Urea Nitrogen 17 mg/dL (9-23); Calcium 9.3 mg/dL (8.7-10.4); Carbon Dioxide 25 mmol/L (20-31); Chloride 106 mmol/L (98-107); Glucose 112 mg/dL (74-106); Potassium 4.4 mmol/L (3.5-5.1); Sodium 137 mmol/L (136-145)
[2024-03-05 07:45] LABS: Bilirubin, Total 0.5 mg/dL (0.2-1.0); Total Protein 6.3 g/dL (5.7-8.2)
[2024-03-05 07:49] LABS: Alanine Aminotransferase < 9 U/L (7-40)
[2024-03-05] MEDS: amLODIPine BESYLATE 5 MG TAB PO SCH (09:32)
--- NOTE | 2024-03-05 09:38 | DVHSR ---
APPROVED REPORT EXAM: Two-dimensional and M-mode echocardiogram with Doppler and color Doppler. Blood Pressure: 188/73 mmHg INDICATION Hypertension RISK FACTORS Height: 5', Weight: 109 DIMENSIONS LVDd3.1 (3.8-5.7cm)LA (2D)4.0 (1.9-4.0cm)Aortic Root (2.0-3.7cm) LVDs1.8 (2.5-4.0cm)LA (MM) (1.9-4.0cm)Aortic Cusp Exc (1.5-2.0cm) EF (%) 73.0 (55-70%)Rt. Atrium3.4 (1.9-4.0cm)Asc. Aorta cm IVSd1.6 (0.7-1.1cm)RV (D) (1.8-2.4cm) Mitral Valve MitralMitral Stenosis E wave0.57m/sMV Mean GR.mmHg A wave0.73m/sMV Peak GR.mmHg E/A ratio0.82D MVAcm2 DECEL [id number] 1/2 [place] Aortic Valve Aortic ValveAortic Stenosis V1m/Lory Mean GR.10mmHg V22.13m/Lory Peak GR.18mmHg Other Information Quality : Technically LimitedRhythm : Technically limited study due to body habitus. Conclusion Moderately concentric left ventricular hypertrophy. Well-preserved left ventricular systolic functio n with estimated ejection fraction of 60%. There is a grade 1 diastolic dysfunction. Normal right ventricular size and dimension. Normal right ventricular systolic function. Moderately dilated right and left atria. The aortic valve is mildly thickened and sclerotic. The mitral valve is mildly thickened no significant mitral valve regurgitation. Tricuspid valve appears normal in structure and function. The pulmonary valve is grossly normal. No pericardial effusion.
--- NOTE | 2024-03-05 09:40 | DVHPNRES ---
Progress Note Date Seen: Mar 05, 2024 Resident Creating Document: KHALIF CHINO RESIDENT Medical Necessity Reason Pt with a Central, PICC or Fol: No Subjective Review of Systems Patient is a 83-year-old female with past medical history of hypothyroidism, rheumatoid arthritis, hypertension, intertrochanteric femoral fracture, who came in due to hypertensive urgency along with an occipital headache. According to the patient, yesterday on 03/03/2024 her home health nurse checked her blood pressure and systolic blood pressure was in the 200s. Home health nurse subsequently instructed the patient to go to the ER. Patient notes having similar episodes of hypertension in the past, however is unable to remember when she experiences the last time. Blood pressure in the ER was noted to be 253/118, patient was given IV labetalol and admitted. Past surgical history: Right hip replacement 6 weeks ago Home medications: Amlodipine 10 mg, aspirin 81 mg Past Hospitalization: In December 2023 for right hip replacement after a mechanical fall Social & Personal history: Patient lives with her family. Denies using tobacco, alcohol, drugs. Allergies: Penicillin Patient seen and examined at bedside. Patient is alert and oriented to time, place person and responding to all questions. Patient notes early in the a.m., she had a brief episode of dizziness that was accompanied with shortness of breaths upon getting out of bed. Objective vital signs Vital Sign Date Time Temp Pulse Resp B/P (MAP) Pulse Ox O2 Delivery O2 Flow Rate FiO2 03/05/24 09:32 126/76 03/05/24 09:00 98.1 83 19 97 98.1 03/04/24 20:00 Room Air* 0 21 Total Intake and Output 03/04/24 03/04/24 03/05/24 15:00 23:00 07:00 Intake Total 250 ml 895 ml Output Total 200 ml Balance 250 ml 695 ml medications Current Medications Medications Dose Ordered Sig/Vinicio Route Start Time Stop Time Status Last Admin Dose Admin Sodium Chloride 10 ml Q8HR IV 03/04/24 06:00 03/05/24 05:58 10 ML Acetaminophen 325 mg Q4HP PRN PO 03/04/24 02:45 Acetaminophen/ Hydrocodone Bitart 1 tab Q4HP PRN PO 03/04/24 02:45 Ondansetron HCl 4 mg Q4HP PRN IV 03/04/24 02:45 Enoxaparin Sodium 40 mg DAILY SC 03/04/24 10:00 03/05/24 09:32 40 MG Nitroglycerin 0.4 mg Q5MINP PRN SL 03/04/24 02:45 Morphine Sulfate 2 mg Q30M PRN IV 03/04/24 02:45 Hydralazine HCl 10 mg Q6HPRN PRN IV 03/04/24 06:00 03/04/24 08:41 10 MG Methimazole 5 mg DAILY PO 03/04/24 10:00 03/05/24 09:32 5 MG Amlodipine Besylate 5 mg DAILY PO 03/05/24 10:00 03/05/24 09:32 5 MG Examination General Appearance: Cooperative. Well developed. Well nourished. NAD Head Exam: Normal inspection Neck Exam: Normal inspection. Non-tender. Normal alignment Pulmonary/Respiratory: Chest non-tender. Clear bilateral breath sounds, no crackles, no wheezing. Cardiovascular/Chest: Regular rate and rhythm. No murmurs. No JVD. Peripheral Pulses: 2+ Radial (R). 2+ Radial (L). 2+ Pedal (R). 2+ Pedal (L) Abdominal Exam: Normal bowel sounds. Soft. normal abdomen, no visible veins, Nontender. No hepatospenomegaly. No masses Ankle Exam: Negative ankle edema Lower extremities: Negative lower extremity edema Neuro/Mental Status: A&O x4. Coherent. Thoughts/Psych: Normal thought pattern. Appropriate mood and affect. Good judgement and insight Skin Exam: Normal inspection. Normal color. Warm. Dry laboratory and microbiology Laboratory Tests 03/05/24 06:53 Test 03/05/24 06:53 Range/Units Serum Glucose 112 H 74-106 mg/dL Problem List/Assessment/Plan Problem List/Assessment/Plan Hypertensive urgency versus emergency - CXR: No acute cardiopulmonary disease - head CT: No acute intracranial hemorrhage. No CT findings of territorial ischemia. - extremity venous Doppler: There is no sonographic evidence for DVT in the lower extremities. - IV labetalol 5 mg once, IV labetalol 10 mg once - hydralazine 10 mg q.6 as needed for systolic blood pressure greater than 150 - PT evaluation requested - ordered echocardiogram - amlodipine 5 mg p.o. daily Dizziness: Ruled out stroke - carotid Doppler: No hemodynamically significant stenosis noted in the right and left carotid system - head CT: no acute intracranial hemorrhage. No CT findings of territorial ischemia. - ordered orthostatic vital signs Hyperthyroidism - TSH 0.13 - methimazole 5 mg p.o. daily History of rheumatoid arthritis - acetaminophen 325 mg for mild pain, [place] q.4 hours as needed for moderate pain Vitamin B12 deficiency - repleted DVT prophylaxis: Levonox 40mg Goals of care: Full code, discussed for >16 minutes on 03/04/24 Plan discussed with patient Plan discussed with Dr. Cooley critical care time 38 mins Plan discussed with: Patient, Other (RN) Date of Service: Mar 05, 2024 Billing Provider: KIMBERLI COOLEY MD Common Visit Codes: [id number] CARE 30-74 MIN KHALIF CHINO Mar 05, 2024 09:40 KIMBERLI COOLEY MD Mar 05, 2024 18:00
--- NOTE | 2024-03-05 14:54 | DVH ---
Carotid Duplex Date: 03/05/2024 02:15 PM Clinical History: dizziness Comparison: None Technique: Duplex Doppler evaluation of the extracranial carotid and vertebral arteries including color Doppler and spectral/pulsed waveform analysis was performed. Findings: Velocities and ratios within normal limits. IMPRESSION: No hemodynamically significant stenosis noted in the right carotid system. No hemodynamically significant stenosis noted in the left carotid system. Reference:Radiology 2003; 229:[id number]
[2024-03-06 01:00] VITALS: BP 140/62; PULSE 77; RESP 18; TEMP 98.1; O2SAT 97
[2024-03-06 05:00] VITALS: BP_SYST 148; BP_SYST 151; BP_SYST 153; BP_DIAS 62; BP_DIAS 71; BP_DIAS 82; PULSE 83; PULSE 89; PULSE 90; RESP 18; TEMP 98; O2SAT 97; O2SAT 98
[2024-03-06 06:31] VITALS: BP 131/78; PULSE 100; RESP 18; O2SAT 97
[2024-03-06] MEDS ORDERED: AMLO1TAB23 PO (08:31)
[2024-03-06 09:00] VITALS: BP_SYST 147; BP_SYST 151; BP_DIAS 57; BP_DIAS 81; PULSE 67; RESP 17; TEMP 98.2; O2SAT 96
[2024-03-06 12:48] VITALS: BP 147/57; PULSE 69
[2024-03-06 13:00] VITALS: BP 164/74; PULSE 92; RESP 16; TEMP 97.5; O2SAT 96
--- NOTE | 2024-03-06 14:02 | DVHDSRES ---
Discharge Summary Date of Admission Resident Creating Document: KHALIF CHINO RESIDENT Mar 04, 2024 at 02:41 Date of Discharge: Mar 06, 2024 Labs/Diagnostic Data: Laboratory Results Test 03/05/24 06:53 03/04/24 15:34 03/04/24 04:17 03/04/24 00:25 White Blood Count 5.6 10^3/uL (4.4-10.8) Red Blood Count 3.93 10^6/uL (4.0-5.20) Hemoglobin 12.5 g/dL (12.2-16.2) Hematocrit 37.9 % (36.0-46.0) Mean Corpuscular Volume 96.3 fL (80.0-100.0) Mean Corpuscular Hemoglobin 31.7 pg (28.0-32.0) Mean Corpuscular Hemoglobin Concent 32.9 g/dL (32.0-36.0) Red Cell Distribution Width 14.9 % (11.8-14.3) Platelet Count 153 10^3/uL (140-450) Mean Platelet Volume 11.2 fL (6.9-10.8) Neutrophils (%) (Auto) 65.3 % (37.0-80.0) Lymphocytes (%) (Auto) 22.3 % (10.0-50.0) Monocytes (%) (Auto) 9.4 % (0.0-12.0) Eosinophils (%) (Auto) 2.4 % (0.0-7.0) Basophils (%) (Auto) 0.6 % (0.0-2.0) Neutrophils # (Auto) 3.7 10 ^3/uL (1.6-8.6) Lymphocytes # (Auto) 1.3 10 ^3/uL (0.4-5.4) Monocytes # (Auto) 0.5 10 ^3/uL (0-1.3) Eosinophils # (Auto) 0.1 10 ^3/uL (0-0.8) Basophils # (Auto) 0 10 ^3/uL (0-0.2) Nucleated Red Blood Cells 0.1 % Sodium Level 137 mmol/L (136-145) Potassium Level 4.4 mmol/L (3.5-5.1) Chloride Level 106 mmol/L (98-107) Carbon Dioxide Level 25 mmol/L (20-31) Anion Gap 6 (5-15) Blood Urea Nitrogen 17 mg/dL (9-23) Creatinine 0.66 mg/dL (0.550-1.02) Glomerular Filtration Rate Calc 86 mL/min (>90) BUN/Creatinine Ratio 25.8 (10.0-20.0) Serum Glucose 112 mg/dL (74-106) Calcium Level 9.3 mg/dL (8.7-10.4) Total Bilirubin 0.5 mg/dL (0.2-1.0) Aspartate Amino Transferase (AST) < 8 U/L (13-40) Alanine Aminotransferase (ALT) < 9 U/L (7-40) Alkaline Phosphatase 80 U/L (46-116) Total Protein 6.3 g/dL (5.7-8.2) Albumin 3.8 g/dL (3.2-4.8) Urine Color Yellow (Yellow) Urine Clarity Clear (Clear) Urine pH 6.5 (5.0-9.0) Urine Specific [place] 1.024 (1.001-1.035) Urine Protein 1+ (Negative) Urine Ketones Negative (Negative) Urine Blood Negative /uL (Negative) Urine Nitrite Negative (Negative) Urine Bilirubin Negative (Negative) Urine Urobilinogen 3 mg/dL (Negative) Urine Leukocyte Esterase Trace /uL (Negative) Urine RBC 2 /hpf (0 - 4) Urine WBC 5 /hpf (0 - 5) Urine Squamous Epithelial Cells Few /hpf (<5) Urine Amorphous Crystals Few /hpf (None Seen) Urine Bacteria None seen /hpf (None Seen) Urine Mucus Few (None Seen) Urine Glucose Normal mg/dL (Normal) Urine Opiates Screen Neg (NEGATIVE) Urine Fentanyl Screen Neg (NEGATIVE) Urine Barbiturates Screen Neg (NEGATIVE) Urine Phencyclidine Screen Neg (NEGATIVE) Urine Amphetamines Screen Neg (NEGATIVE) Urine Benzodiazepines Screen Neg (NEGATIVE) Urine Cocaine Screen Neg (NEGATIVE) Urine Cannabinoids Screen Neg (NEGATIVE) Hemoglobin A1c 5.7 % A1C (<5.7) Vitamin B12 Level 371 pg/mL (211-911) Vitamin D 25-Hydroxy 65.3 ng/mL (30.0-100) Thyroid Stimulating Hormone (TSH) 0.13 uIU/mL (0.55-4.78) Free Thyroxine (T4) Calculated 1.36 ng/dL (0.89-1.76) Free Triiodothyronine (T3) pg/mL 2.95 pg/mL (2.3-4.2) Magnesium Level 2.5 mg/dL (1.6-2.6) Troponin I High Sensitivity 28 ng/L (</=34) Test 03/03/24 21:12 B-Type Natriuretic Peptide 203.03 pg/mL (0-100) Other Laboratory Tests 03/05/24 06:53 Brief Hx & Hospital Course: Patient is a 83-year-old female with past medical history of hypothyroidism, rheumatoid arthritis, hypertension, intertrochanteric femoral fracture, who came in due to hypertensive urgency along with an occipital headache. According to the patient, yesterday on 03/03/2024 her home health nurse checked her blood pressure and systolic blood pressure was in the 200s. Home health nurse subsequently instructed the patient to go to the ER. Patient notes having similar episodes of hypertension in the past, however is unable to remember when she experiences the last time. Blood pressure in the ER was noted to be 253/118, patient was given IV labetalol and admitted. Hospital course: Basically showed no acute cardiopulmonary disease, head CT showed no acute intracranial hemorrhage. No CT findings of territorial ischemia. Extremity venous Doppler showed no sonographic evidence for DVT in the bilateral lower extremities. Patient was started on IV labetalol 5 mg once and then continued on IV labetalol 10 mg once. Patient was also placed on IV hydralazine 10 mg q.6 as needed for SBP greater than 150. PT evaluation was completed and patient completed physical therapy during the course of her hospitalization. Amlodipine 5 mg p.o. daily was also continued. On the 2nd day of hospitalization, patient experienced a brief episode of dizziness, carotid Doppler showed no hemodynamically significant stenosis noted in the right and left carotid systems. Orthostatic vital signs were within normal limits. Echocardiogram showed moderately concentric left ventricular hypertrophy. Well-preserved left ventricular systolic function with EF 60%. Grade 1 diastolic dysfunction. Aortic valve mildly thickened and sclerotic, mitral valve mildly thickened with no significant regurgitation. On the day of discharge, patient appeared well and had stable vital signs, denied any active ongoing pain or discomfort. Her hospital course was uncomplicated. General Appearance: Cooperative. Well developed. Well nourished. NAD Head Exam: Normal inspection Neck Exam: Normal inspection. Non-tender. Normal alignment Pulmonary/Respiratory: Chest non-tender. Clear bilateral breath sounds, no crackles, no wheezing. Cardiovascular/Chest: Regular rate and rhythm. No murmurs. No JVD. Peripheral Pulses: 2+ Radial (R). 2+ Radial (L). 2+ Pedal (R). 2+ Pedal (L) Abdominal Exam: Normal bowel sounds. Soft. normal abdomen, no visible veins, Nontender. No hepatospenomegaly. No masses Ankle Exam: Negative ankle edema Lower extremities: Negative lower extremity edema Neuro/Mental Status: A&O x4. Coherent. Thoughts/Psych: Normal thought pattern. Appropriate mood and affect. Good judgement and insight Skin Exam: Normal inspection. Normal color. Warm. Dry Operations or Procedures EXAM: Two-dimensional and M-mode echocardiogram with Doppler and color Doppler. Blood Pressure: 188/73 mmHg INDICATION Hypertension RISK FACTORS Height: 5', Weight: 109 DIMENSIONS LVDd 3.1 (3.8-5.7cm) LA (2D) 4.0 (1.9-4.0cm) Aortic Root (2.0- 3.7cm) LVDs 1.8 (2.5-4.0cm) LA (MM) (1.9-4.0cm) Aortic Cusp Exc (1.5- 2.0cm) EF (%) 73.0 (55-70%) Rt. Atrium 3.4 (1.9-4.0cm) Asc. Aorta cm IVSd 1.6 (0.7-1.1cm) RV (D) (1.8-2.4cm) Mitral Valve Mitral Mitral Stenosis E wave 0.57m/s MV Mean GR. mmHg A wave 0.73m/s MV Peak GR. mmHg E/A ratio 0.8 2D MVA cm2 DECEL Time 253ms PRESS 1/2 Time ms Aortic Valve Aortic Valve Aortic Stenosis V1 m/s AO Mean GR. 10mmHg V2 2.13m/s AO Peak GR. 18mmHg Other Information Quality : Technically Limited Rhythm : Technically limited study due to body habitus. Conclusion Moderately concentric left ventricular hypertrophy. Well-preserved left ventricular systolic function with estimated ejection fraction of 60%. There is a grade 1 diastolic dysfunction. Normal right ventricular size and dimension. Normal right ventricular systolic function. Moderately dilated right and left atria. The aortic valve is mildly thickened and sclerotic. The mitral valve is mildly thickened no significant mitral valve regurgitation. Tricuspid valve appears normal in structure and function. The pulmonary valve is grossly normal. No pericardial effusion. EXAM: CT HEAD WITHOUT CONTRAST INDICATION: HTN TECHNIQUE: CT of the head without intravenous contrast. Radiation Dose Information: CT Dose: CTDI volume is 48.66 mGy. Dose-length product is 682.94 mGy*cm The dose indicators for CT are the volume Computed Tomography (CT) Dose Index (CTDIvol) and the Dose Length Product (DLP), and are measured in units of mGy and mGy-cm, respectively. These indicators are not patient dose, but values generated from the CT scanner acquisition factors. The report includes radiation exposure data for exposures received during this examination. COMPARISON: None FINDINGS: There is no evidence of acute intracranial hemorrhage, extra-axial collection, mass effect, midline shift, herniation or hydrocephalus. The ventricles, sulci and cisterns are age appropriate. The gasca-white differentiation is intact. Patchy periventricular and subcortical white matter hypoattenuation is nonspecific but may be related to small vessel ischemic disease. The visualized paranasal sinuses and mastoid air cells are clear. The surrounding soft tissues and osseous structures are unremarkable. IMPRESSION: 1. No acute intracranial hemorrhage. 2. No CT findings territorial ischemia. BILATERAL LOWER EXTREMITY VENOUS DOPPLER CLINICAL HISTORY: To rule out DVT Technique: Duplex Doppler evaluation of the deep venous systems of both lower extremities from the common femoral veins to the popliteal veins including color Doppler and spectral/pulsed waveform analysis was performed. COMPARISON: None FINDINGS: The right and left common femoral, superficial femoral, popliteal, posterior tibial and peroneal veins appear patent with normal augmentation, phasicity, compressibility and color-flow. IMPRESSION: 1. There is no sonographic evidence for DVT in the lower extremities. Carotid Duplex Date: 03/05/2024 02:15 PM Clinical History: dizziness Comparison: None Technique: Duplex Doppler evaluation of the extracranial carotid and vertebral arteries including color Doppler and spectral/pulsed waveform analysis was performed. Findings: Velocities and ratios within normal limits. IMPRESSION: No hemodynamically significant stenosis noted in the right carotid system. No hemodynamically significant stenosis noted in the left carotid system. Condition at Discharge: Good Final Diagnosis/Problems List Hypertensive urgency versus emergency Hypertensive heart disease Dizziness: Ruled out stroke Hyperthyroidism History of rheumatoid arthritis Vitamin B12 deficiency Discharge Disposition: Home Discharge Instruct/Medications Diet: Cardiac 2g Na,low cholest Activity: No Restrictions, As Tolerated Follow Up/Referral: Please follow up with PCP within 1-2 weeks Medications: - amiodarone 10 mg once daily - stopped levothyroxine - continue methimazole Discharge Statement: "Patient was advised to return to the ER or call 911 if any headaches, dizziness, shortness of breath, chest pain, abdominal pain, bleeding, fevers, or worsening of medical condition. Patient was counseled about treatment plan, medications, possible side effects, patientverbalized understanding. All questions were answered to the best of my ability. This discharge took greater then 30 minutes in planning, reviewing documentation, counseling the patient, and discussing with other team members." ASSESSMENT ASSESSMENT Assessment Hypertensive urgency versus emergency Dizziness: Ruled out stroke Hyperthyroidism History of rheumatoid arthritis Vitamin B12 deficiency Date of Service: Mar 06, 2024 Billing Provider: KIMBERLI GA MD Common Visit Codes: [id number] DISCH DAY >30min KHALIF CHINO Mar 06, 2024 14:02 KIMBERLI GA MD Mar 07, 2024 12:43
[2024-03-06] MEDS: INFLUENZA TRIVALENT 2024-2025 0.5 ML INJ IM ONE (14:40)
[2024-03-06] MEDS: PNEUMOCOCCAL VACC POLYS 25 MCG/0.5 ML VIAL IM ONE (14:43)
== END 2024-03-06 15:12 | disposition home or self-care (01) | DRG 199 ==
LOC: ER 20:35 → OVERFLOW 03-04 02:41 → WEST WING 03-04 09:10 → TELE-WESTW 03-05 07:02 → WEST WING 03-05 10:07
PROVIDERS: ADMIT Internal Medicine; ATTEND Internal Medicine
DX: I16.1 Hypertensive emergency (principal); I50.31 Acute diastolic (congestive) heart failure; E05.90 Thyrotoxicosis, unspecified without thyrotoxic crisis or storm; E53.8 Deficiency of other specified B group vitamins; Z79.899 Other long term (current) drug therapy; I16.0 Hypertensive urgency; I11.0 Hypertensive heart disease with heart failure
CPT/HCPCS: 36415; 70450; 71045; 80053; 80307; 81001; 82306; 82607; 83036; 83735; 83880; 84439; 84443; 84481; 84484; 85025; 93005; 93306; 93886; 93970; 97110; 97116; 97163; 97530; G0378